=== PATIENT | male | born 2000 | race Caucasian/White ===

== ENCOUNTER 2024-01-20 12:24 | Emergency (ER) | payer SELFPAY ==
[~2024-01-20] VITALS: Ht 182.9 cm; Wt 81.8 kg
[2024-01-20 12:36] VITALS: TEMP 97.8
[2024-01-20] MEDS ORDERED: Iohexol 300 - 100 ML VIAL IV ONE (15:33)
[2024-01-20] MEDS ORDERED: NS 100 ML IV ONE (15:33)
[2024-01-20] MEDS ORDERED: diphenhydrAMINE 50 MG/ML 1 ML VIAL IV ONE (15:45)
[2024-01-20] MEDS ORDERED: methylPREDNISolone Sod Succ 125 MG/2 ML VIAL IV ONE (15:45)
[2024-01-20] MEDS ORDERED: NS 1,000 ML IV ONE (15:45)
[2024-01-20] MEDS ORDERED: PREDNISONE50 MG PO (16:41)
[2024-01-20 17:00] VITALS: BP 129/78; PULSE 98
== END 2024-01-20 17:00 | disposition home or self-care (01) ==
LOC: COL.ER 12:24
DX: S42.101A Fracture of unspecified part of scapula, right shoulder, initial encounter for closed fracture (principal); S00.211A Abrasion of right eyelid and periocular area, initial encounter; V13.4XXA Pedal cycle driver injured in collision with car, pick-up truck or van in traffic accident, initial encounter; Y93.55 Activity, bike riding; Y92.410 Unspecified street and highway as the place of occurrence of the external cause
CPT/HCPCS: J1200; J2919; J7030; Q9967